=== PATIENT | male | born 1950 | race Hispanic/Latino ===

== ENCOUNTER 2021-12-01 04:18 | Observation (INO) | payer MEDICARE ==
[~2021-12-01] VITALS: Ht 172.7 cm; Wt 101.6 kg
[~2021-12-01 04:18] MED LIST: FLOMAX0.4 MG PO; FUROSEMIDE40 MG PO; HYDROCHLOROTHIA25 MG PO; LANSOPRAZOLE30 MG PO; LEVOTHYROXINE50 MCG PO; ONDANSETRON ODT4 MG PO; PEPCID20 MG PO; SPIRONOLACTONE25 MG PO
[2021-12-01] MEDS ORDERED: ONDANSETRON HCL INJ 2MG/ML 2ML 2 MG/ML VIAL IV STA (04:27)
[2021-12-01] MEDS ORDERED: MECLIZINE HCL 12.5 MG TAB PO ONE (04:30)
[2021-12-01 04:49] LABS: BASOPHILS % 0.7 % (0.0-1.0); EOSINOPHILS # (AUTO) 0.1 (0.0-0.4); EOSINOPHILS % 2.3 % (0.0-6.0); HEMATOCRIT 36.1 % (38.2-49.6); HEMOGLOBIN 12.2 g/dL (14.0-18.0); LYMPHOCYTES # (AUTO) 1.2 (1.0-3.2); LYMPHOCYTES % 26.7 % (18.0-39.1); MEAN CORPUSCULAR HEMOGLOBIN 31.4 pg (28-32); MEAN CORPUSCULAR HGB CONC 33.8 g/dL (31-35); MONOCYTES # (AUTO) 0.3 (0.2-0.8); MONOCYTES % 6.7 % (4.4-11.3); NEUTROPHILS # (AUTO) 2.7 (2.1-6.9); NEUTROPHILS % 63.1 % (38.7-80.0); PLATELET COUNT 79 x10e3/uL (140-360); RED BLOOD COUNT 3.88 x10e6/uL (4.3-5.7); RED CELL DISTRIBUTION WIDTH 14.4 % (11.7-14.4)
[2021-12-01 04:55] LABS: INR 1.08
[2021-12-01 04:56] LABS: PARTIAL THROMBOPLASTIN TIME 33.6 seconds (23.8-35.5)
[2021-12-01 05:05] LABS: ALBUMIN 2.8 g/dL (3.5-5.0); ALBUMIN/GLOBULIN RATIO 0.7 (0.8-2.0); ANION GAP 12.9 mmol/L (8-16); CALCIUM 8.1 mg/dL (8.4-10.2); CREATININE, SERUM 0.77 mg/dL (0.72-1.25); POTASSIUM 3.9 mmol/L (3.5-5.1)
[2021-12-01 05:26] LABS: CLARITY,URINE CLEAR (CLEAR); COLOR,URINE YELLOW (YELLOW); LEUKOCYTE ESTERASE ,URINE NEGATIVE (NEGATIVE)
[2021-12-01 05:27] LABS: KETONES,URINE NEGATIVE (NEGATIVE); NITRITE,URINE NEGATIVE (NEGATIVE); PROTEIN,URINE DIPSTICK NEGATIVE (NEGATIVE); URINE UROBILINOGEN 1 mg/dL (0.2 - 1)
[2021-12-01 05:28] LABS: RBC,URINE 0-5 /HPF (0-5); WBC,URINE (MAN) 0-5 /HPF (0-5)
[2021-12-01 05:29] LABS: BACTERIA,URINE RARE /HPF
[2021-12-01] MEDS ORDERED: ONDANSETRON HCL INJ 2MG/ML 2ML 2 MG/ML VIAL IV PRN (07:00)
[2021-12-01] MEDS: RIFAXIMIN 550 MG TABLET PO SCH ×3 (07:19→17:34)
[2021-12-01] MEDS: LACTULOSE SYRUP 20 GM/30 ML UDC PO SCH ×3 (07:19→17:34)
[2021-12-01] MEDS ORDERED: MULTIVITAMINS- 12 INJECTION 10 ML, FOLIC ACID MDV 1 MG, THIAMINE HCL INJ 100 MG in SODI... IV ONE (08:45)
[2021-12-01 12:00] VITALS: BP 117/54
[2021-12-01 12:45] VITALS: BP 114/61
[2021-12-01 13:13] VITALS: BP 114/61
[2021-12-01 15:17] VITALS: BP 121/68
[2021-12-01] MEDS ORDERED: LASIX20 MG PO (15:30)
[2021-12-01] MEDS ORDERED: ACETAMINOPHEN 325 MG TAB PO PRN (15:45)
[2021-12-01] MEDS ORDERED: TRAMADOL HCL 50 MG TAB PO PRN (15:45)
[2021-12-01] MEDS: PROPRANOLOL HCL 10 MG TAB PO SCH (17:35)
[2021-12-01 19:57] VITALS: BP 121/70
[2021-12-01 19:58] VITALS: BP 121/70
[2021-12-01] MEDS ORDERED: TAMSULOSIN HCL 0.4 MG CAP PO SCH (21:00)
[2021-12-02] VITALS: BP 136/74
[2021-12-02] MEDS: LACTULOSE SYRUP 20 GM/30 ML UDC PO SCH
[2021-12-02 04:00] VITALS: BP 136/72
[2021-12-02 05:06] LABS: BASOPHILS # (AUTO) 0.1 (0.0-0.1); BASOPHILS % 1.1 % (0.0-1.0); EOSINOPHILS # (AUTO) 0.2 (0.0-0.4); EOSINOPHILS % 3.4 % (0.0-6.0); HEMOGLOBIN 12.7 g/dL (14.0-18.0); LYMPHOCYTES # (AUTO) 1.9 (1.0-3.2); LYMPHOCYTES % 34.9 % (18.0-39.1); MEAN CORPUSCULAR HEMOGLOBIN 31.4 pg (28-32); MEAN CORPUSCULAR HGB CONC 33.4 g/dL (31-35); MEAN CORPUSCULAR VOLUME 94.1 fL (81-99); MONOCYTES # (AUTO) 0.5 (0.2-0.8); MONOCYTES % 8.6 % (4.4-11.3); NEUTROPHILS # (AUTO) 2.8 (2.1-6.9); NEUTROPHILS % 51.8 % (38.7-80.0); PLATELET COUNT 98 x10e3/uL (140-360); RED BLOOD COUNT 4.04 x10e6/uL (4.3-5.7); RED CELL DISTRIBUTION WIDTH 14.8 % (11.7-14.4)
[2021-12-02 05:36] LABS: ALBUMIN 2.7 g/dL (3.5-5.0); ALBUMIN/GLOBULIN RATIO 0.6 (0.8-2.0); ANION GAP 11.9 mmol/L (8-16); CALCIUM 8.4 mg/dL (8.4-10.2); CREATININE, SERUM 0.93 mg/dL (0.72-1.25); POTASSIUM 3.9 mmol/L (3.5-5.1)
[2021-12-02] MEDS ORDERED: LEVOTHYROXINE SODIUM 25 MCG TABLET PO SCH (06:00)
[2021-12-02] MEDS ORDERED: PANTOPRAZOLE SOD 40 MG TABEC PO SCH (07:30)
[2021-12-02 08:00] VITALS: BP 130/69
[2021-12-02] MEDS: PROPRANOLOL HCL 10 MG TAB PO SCH (08:49)
[2021-12-02] MEDS: RIFAXIMIN 550 MG TABLET PO SCH (08:49)
[2021-12-02 08:58] VITALS: BP 130/69
[2021-12-02] MEDS ORDERED: FUROSEMIDE 40 MG TAB PO SCH (09:00)
[2021-12-02] MEDS ORDERED: SPIRONOLACTONE 25 MG TAB PO SCH (09:00)
[2021-12-02] MEDS ORDERED: ONDANSETRON HCL 4 MG ORAL DISINTEGRATING TAB PO PRN (09:15)
[2021-12-02 12:13] VITALS: BP 123/74
[2021-12-02] MEDS ORDERED: LACTULOSE20 GM/30 M PO (13:39)
[2021-12-02] MEDS ORDERED: FUROSEMIDE40 MG PO (13:39)
[2021-12-02] MEDS ORDERED: ALDACTONE25 MG PO (13:39)
== END 2021-12-02 14:35 | disposition home or self-care (01) ==
LOC: ER 04:25 → INTOOBSV 06:55 → MERGE 06:55 → ERHOLD 06:55 → MED/SURG 15:00
PROVIDERS: ADMIT Internal Medicine; ATTEND Internal Medicine
DX: K70.40 Alcoholic hepatic failure without coma (principal); F10.21 Alcohol dependence, in remission; I25.10 Atherosclerotic heart disease of native coronary artery without angina pectoris; E11.9 Type 2 diabetes mellitus without complications; E03.9 Hypothyroidism, unspecified; Z20.822 Contact with and (suspected) exposure to COVID-19
CPT/HCPCS: 0223U; 36415 ×2; 70450; 80053 ×2; 81001; 82140 ×2; 82270; 83735; 84443; 85025 ×2; 85610; 85730; 94799; 97139; 97161; 99284; G0378 ×2; J3411; J7030; S0164

== ENCOUNTER → 2022-06-18 | Day surgery (SDC) | payer MEDICARE ==
[2022-06-10 10:46] LABS: BASOPHILS % 0.8 % (0.0-1.0); EOSINOPHILS # (AUTO) 0.1 (0.0-0.4); EOSINOPHILS % 1.6 % (0.0-6.0); HEMATOCRIT 33.8 % (38.2-49.6); HEMOGLOBIN 10.8 g/dL (14.0-18.0); LYMPHOCYTES # (AUTO) 0.9 (1.0-3.2); LYMPHOCYTES % 24.3 % (18.0-39.1); MEAN CORPUSCULAR HEMOGLOBIN 29.8 pg (28-32); MEAN CORPUSCULAR VOLUME 93.1 fL (81-99); MONOCYTES # (AUTO) 0.3 (0.2-0.8); MONOCYTES % 8.4 % (4.4-11.3); NEUTROPHILS # (AUTO) 2.5 (2.1-6.9); NEUTROPHILS % 64.6 % (38.7-80.0); PLATELET COUNT 71 x10e3/uL (140-360); RED BLOOD COUNT 3.63 x10e6/uL (4.3-5.7); RED CELL DISTRIBUTION WIDTH 14.4 % (11.7-14.4)
[2022-06-10 10:59] LABS: INR 1.24; PROTHROMBIN TIME 15.8 seconds (11.9-14.5)
[2022-06-10 11:00] LABS: PARTIAL THROMBOPLASTIN TIME 36.7 seconds (23.8-35.5)
[2022-06-10 11:05] LABS: ALBUMIN 2.7 g/dL (3.5-5.0); ALBUMIN/GLOBULIN RATIO 0.6 (0.8-2.0); CALCIUM 8.6 mg/dL (8.4-10.2); CREATININE, SERUM 0.86 mg/dL (0.72-1.25)
[~2022-06-18] MED LIST changes: +ALDACTONE25 MG PO; +LACTULOSE20 GM/30 M PO; +LASIX20 MG PO; +LIDOCAINE HCL 2% LOCAL INJ 5 ML SDV VIAL INJ ONE; +PROPOFOL IV EMULSION 10 MG/ML 20 ML VIAL ONE
[2022-06-18 08:25] VITALS: BP 110/70
== END | disposition home or self-care (01) ==
LOC: OR 05:57
PROVIDERS: ATTEND Internal Medicine Gastroenterology
DX: K29.50 Unspecified chronic gastritis without bleeding (principal); K44.9 Diaphragmatic hernia without obstruction or gangrene; K70.30 Alcoholic cirrhosis of liver without ascites; K57.90 Diverticulosis of intestine, part unspecified, without perforation or abscess without bleeding; Z71.3 Dietary counseling and surveillance; I10 Essential (primary) hypertension; E03.9 Hypothyroidism, unspecified; N40.0 Benign prostatic hyperplasia without lower urinary tract symptoms; Z01.810 Encounter for preprocedural cardiovascular examination; Z01.812 Encounter for preprocedural laboratory examination; Z79.899 Other long term (current) drug therapy; Z68.36 Body mass index [BMI] 36.0-36.9, adult
CPT/HCPCS: 36415; 43235; 80053; 85025; 85610; 85730; 93005; J2001; J2704; 43239

== ENCOUNTER → 2022-09-17 | Day surgery (SDC) | payer MEDICARE ==
[2022-09-10 14:56] LABS: BASOPHILS % 0.5 % (0.0-1.0); EOSINOPHILS # (AUTO) 0.1 (0.0-0.4); EOSINOPHILS % 2.5 % (0.0-6.0); HEMATOCRIT 30.6 % (38.2-49.6); HEMOGLOBIN 10.1 g/dL (14.0-18.0); LYMPHOCYTES % 23.8 % (18.0-39.1); MEAN CORPUSCULAR VOLUME 87.9 fL (81-99); MONOCYTES # (AUTO) 0.4 (0.2-0.8); NEUTROPHILS # (AUTO) 2.6 (2.1-6.9); NEUTROPHILS % 64.2 % (38.7-80.0); PLATELET COUNT 71 x10e3/uL (140-360); RED BLOOD COUNT 3.48 x10e6/uL (4.3-5.7); RED CELL DISTRIBUTION WIDTH 15.7 % (11.7-14.4)
[2022-09-10 15:09] LABS: INR 1.24; PROTHROMBIN TIME 16.1 seconds (11.9-14.5)
[2022-09-10 15:10] LABS: PARTIAL THROMBOPLASTIN TIME 36.5 seconds (23.8-35.5)
[2022-09-10 15:19] LABS: ALBUMIN 2.6 g/dL (3.5-5.0); ALBUMIN/GLOBULIN RATIO 0.6 (0.8-2.0); ANION GAP 11.9 mmol/L (8-16); CALCIUM 8.2 mg/dL (8.4-10.2); CREATININE, SERUM 0.94 mg/dL (0.72-1.25); POTASSIUM 3.9 mmol/L (3.5-5.1)
[~2022-09-17] MED LIST changes: +LACTATED RINGER'S 1,000 ML ONE
[2022-09-17 08:59] VITALS: BP 125/72
== END | disposition home or self-care (01) ==
LOC: OR 07:36
PROVIDERS: ATTEND Internal Medicine Gastroenterology
DX: K92.1 Melena (principal); Z86.010 Personal history of colon polyps; K57.30 Diverticulosis of large intestine without perforation or abscess without bleeding; K64.8 Other hemorrhoids; K70.30 Alcoholic cirrhosis of liver without ascites; Z01.810 Encounter for preprocedural cardiovascular examination; Z01.812 Encounter for preprocedural laboratory examination; Z79.899 Other long term (current) drug therapy; Z68.35 Body mass index [BMI] 35.0-35.9, adult
CPT/HCPCS: 36415; 45378; 80053; 85025; 85610; 85730; 93005; J2001; J2704; J7121

== ENCOUNTER 2023-03-04 19:52 | Inpatient (IN) | payer MEDICARE ==
[~2023-03-04] VITALS: Ht 172.7 cm; Wt 10.2 kg
[~2023-03-04 19:52] MED LIST changes: +CEFDINIR300 MG PO; +KETOROLAC TROME10 MG PO; -LACTATED RINGER'S 1,000 ML ONE; -LIDOCAINE HCL 2% LOCAL INJ 5 ML SDV VIAL INJ ONE; +ONDANSETRON ODT4 MG SL; -PROPOFOL IV EMULSION 10 MG/ML 20 ML VIAL ONE; +ULTRAM 50MG50 MG PO
[2023-03-04 20:29] LABS: BASOPHILS % 0.4 % (0.0-1.0); EOSINOPHILS # (AUTO) 0.1 (0.0-0.4); EOSINOPHILS % 1.5 % (0.0-6.0); HEMATOCRIT 32.6 % (38.2-49.6); HEMOGLOBIN 11.6 g/dL (14.0-18.0); LYMPHOCYTES # (AUTO) 0.9 (1.0-3.2); LYMPHOCYTES % 19.1 % (18.0-39.1); MEAN CORPUSCULAR HEMOGLOBIN 31.9 pg (28-32); MEAN CORPUSCULAR HGB CONC 35.6 g/dL (31-35); MEAN CORPUSCULAR VOLUME 89.6 fL (81-99); MONOCYTES # (AUTO) 0.4 (0.2-0.8); NEUTROPHILS # (AUTO) 3.3 (2.1-6.9); NEUTROPHILS % 70.8 % (38.7-80.0); RED BLOOD COUNT 3.64 x10e6/uL (4.3-5.7); WHITE BLOOD COUNT 4.65 x10e3/uL (4.8-10.8)
[2023-03-04 20:30] LABS: PLATELET COUNT 69 x10e3/uL (140-360)
[2023-03-04 20:45] LABS: ALANINE AMINOTRANSFERASE 31 IU/L (0-55); ALBUMIN 2.7 g/dL (3.5-5.0); ALBUMIN/GLOBULIN RATIO 0.7 (0.8-2.0); ALKALINE PHOSPHATASE 205 IU/L (40-150); BLOOD UREA NITROGEN 11 mg/dL (7-26); BUN/CREATININE RATIO 14 (6-25); CALCIUM 8.8 mg/dL (8.4-10.2); CARBON DIOXIDE 22 mmol/L (22-29); CHLORIDE 111 mmol/L (98-107); CREATINE KINASE 69 IU/L (30-200); GLUCOSE 150 mg/dL (74-118); SODIUM 139 mmol/L (136-145)
[2023-03-04 20:54] LABS: LIPASE 45 U/L (8-78)
[2023-03-04 21:46] LABS: CLARITY,URINE SL CLOUDY (CLEAR); COLOR,URINE AMBER (YELLOW); KETONES,URINE TRACE (NEGATIVE); LEUKOCYTE ESTERASE ,URINE NEGATIVE (NEGATIVE); NITRITE,URINE NEGATIVE (NEGATIVE); PROTEIN,URINE DIPSTICK NEGATIVE (NEGATIVE)
[2023-03-04 21:59] LABS: BACTERIA,URINE MODERATE /HPF
[2023-03-04 22:00] LABS: AMORPHOUS SEDIMENT,URINE MODERATE (FEW); TRANSITIONAL EPI CELLS,URINE FEW; WBC,URINE (MAN) 0-5 /HPF (0-5)
[2023-03-05] VITALS (12 sets, daily range): BP systolic 124–135; BP diastolic 62–101; PULSE 60–69; RESP 13–18; TEMP 98–98.2; O2SAT 98–100
[2023-03-05] MEDS ORDERED: LACTULOSE SYRUP 20 GM/30 ML UDC PO SCH (00:30)
[2023-03-05] MEDS: SODIUM CHLORIDE 0.9% 1000ML 1,000 ML IV SCH ×2 (01:00→06:15)
[2023-03-05] MEDS ORDERED: ALBUTEROL/IPRATROPIUM 3 ML NEB NEB PRN (08:15)
[2023-03-05] MEDS: LACTULOSE SYRUP 20 GM/30 ML UDC PO SCH ×3 (09:43→22:02)
[2023-03-05 11:15] LABS: BASOPHILS % 0.5 % (0.0-1.0); EOSINOPHILS # (AUTO) 0.1 (0.0-0.4); EOSINOPHILS % 3.3 % (0.0-6.0); HEMATOCRIT 30.9 % (38.2-49.6); LYMPHOCYTES # (AUTO) 1.1 (1.0-3.2); LYMPHOCYTES % 24.7 % (18.0-39.1); MEAN CORPUSCULAR HEMOGLOBIN 31.8 pg (28-32); MEAN CORPUSCULAR HGB CONC 35.6 g/dL (31-35); MEAN CORPUSCULAR VOLUME 89.3 fL (81-99); MONOCYTES # (AUTO) 0.4 (0.2-0.8); MONOCYTES % 8.6 % (4.4-11.3); NEUTROPHILS # (AUTO) 2.7 (2.1-6.9); NEUTROPHILS % 62.7 % (38.7-80.0); PLATELET COUNT 73 x10e3/uL (140-360); RED BLOOD COUNT 3.46 x10e6/uL (4.3-5.7); RED CELL DISTRIBUTION WIDTH 16.5 % (11.7-14.4); WHITE BLOOD COUNT 4.29 x10e3/uL (4.8-10.8)
[2023-03-05 11:48] LABS: ALBUMIN 2.6 g/dL (3.5-5.0); ALBUMIN/GLOBULIN RATIO 0.7 (0.8-2.0); ANION GAP 8.8 mmol/L (8-16); CALCIUM 8.6 mg/dL (8.4-10.2); CREATININE, SERUM 0.76 mg/dL (0.72-1.25); POTASSIUM 3.8 mmol/L (3.5-5.1)
[2023-03-05 19:25] LABS: CREATINE KINASE 56 IU/L (30-200)
[2023-03-06] VITALS (11 sets, daily range): BP systolic 112–136; BP diastolic 59–70; PULSE 60–68; RESP 16–18; TEMP 97.8–98.1; O2SAT 97–100
[2023-03-06 05:49] LABS: EOSINOPHILS # (AUTO) 0.2 (0.0-0.4); EOSINOPHILS % 3.9 % (0.0-6.0); HEMATOCRIT 30.3 % (38.2-49.6); HEMOGLOBIN 10.7 g/dL (14.0-18.0); LYMPHOCYTES # (AUTO) 1.3 (1.0-3.2); LYMPHOCYTES % 32.7 % (18.0-39.1); MEAN CORPUSCULAR HEMOGLOBIN 31.8 pg (28-32); MEAN CORPUSCULAR HGB CONC 35.3 g/dL (31-35); MEAN CORPUSCULAR VOLUME 90.2 fL (81-99); MONOCYTES # (AUTO) 0.4 (0.2-0.8); MONOCYTES % 8.8 % (4.4-11.3); NEUTROPHILS # (AUTO) 2.2 (2.1-6.9); NEUTROPHILS % 53.4 % (38.7-80.0); PLATELET COUNT 70 x10e3/uL (140-360); RED BLOOD COUNT 3.36 x10e6/uL (4.3-5.7); RED CELL DISTRIBUTION WIDTH 16.1 % (11.7-14.4); WHITE BLOOD COUNT 4.07 x10e3/uL (4.8-10.8)
[2023-03-06 06:32] LABS: FERRITIN 30.92 ng/mL (21.81-274.66)
[2023-03-06] MEDS: LACTULOSE SYRUP 20 GM/30 ML UDC PO SCH ×3 (06:40→21:02)
[2023-03-06] MEDS ORDERED: TAMSULOSIN HCL 0.4 MG CAP PO SCH (21:00)
[2023-03-07 05:15] LABS: BASOPHILS % 0.5 % (0.0-1.0); EOSINOPHILS # (AUTO) 0.2 (0.0-0.4); EOSINOPHILS % 4.1 % (0.0-6.0); HEMOGLOBIN 10.4 g/dL (14.0-18.0); LYMPHOCYTES # (AUTO) 1.2 (1.0-3.2); LYMPHOCYTES % 31.6 % (18.0-39.1); MEAN CORPUSCULAR HEMOGLOBIN 31.8 pg (28-32); MEAN CORPUSCULAR HGB CONC 35.9 g/dL (31-35); MEAN CORPUSCULAR VOLUME 88.7 fL (81-99); MONOCYTES # (AUTO) 0.3 (0.2-0.8); MONOCYTES % 8.5 % (4.4-11.3); PLATELET COUNT 63 x10e3/uL (140-360); RED BLOOD COUNT 3.27 x10e6/uL (4.3-5.7); RED CELL DISTRIBUTION WIDTH 15.6 % (11.7-14.4); WHITE BLOOD COUNT 3.64 x10e3/uL (4.8-10.8)
[2023-03-07] MEDS ORDERED: LEVOTHYROXINE SODIUM 25 MCG TABLET PO SCH (06:00)
[2023-03-07 06:22] VITALS: BP 129/68; PULSE 67; RESP 18; TEMP 98.1; O2SAT 100
[2023-03-07] MEDS: LACTULOSE SYRUP 20 GM/30 ML UDC PO SCH (06:44)
[2023-03-07 08:11] VITALS: BP 121/56; PULSE 67; RESP 16; TEMP 98; O2SAT 100
[2023-03-07 09:00] VITALS: BP 121/56; PULSE 67; RESP 16; TEMP 98; O2SAT 100
[2023-03-07] MEDS ORDERED: SPIRONOLACTONE 25 MG TAB PO SCH (09:00)
[2023-03-07] MEDS ORDERED: PANTOPRAZOLE SOD 40 MG TABEC PO SCH (09:00)
[2023-03-07] MEDS ORDERED: FUROSEMIDE 40 MG TAB PO SCH (09:00)
[2023-03-07] MEDS ORDERED: PANTOPRAZOLE SO40 MG PO (10:25)
[2023-03-07] MEDS ORDERED: LACTULOSE20 GM/30 M PO (10:25)
== END 2023-03-07 11:08 | disposition home or self-care (01) | DRG 642 ==
LOC: ER 19:55 → ERHOLD 22:09 → ICU 03-05 03:31 → MED/SURG 03-05 15:12
PROVIDERS: ADMIT Internal Medicine; ATTEND Internal Medicine
DX: E72.4 Disorders of ornithine metabolism (principal); K92.1 Melena; D61.818 Other pancytopenia; D64.9 Anemia, unspecified; K70.30 Alcoholic cirrhosis of liver without ascites; E03.9 Hypothyroidism, unspecified; I10 Essential (primary) hypertension; N40.0 Benign prostatic hyperplasia without lower urinary tract symptoms; K57.90 Diverticulosis of intestine, part unspecified, without perforation or abscess without bleeding; K21.9 Gastro-esophageal reflux disease without esophagitis; Z91.148 Patient's other noncompliance with medication regimen for other reason; Z79.890 Hormone replacement therapy; Z79.899 Other long term (current) drug therapy; Z20.822 Contact with and (suspected) exposure to COVID-19
CPT/HCPCS: 36415; 70450; 71045; 80053; 80320; 81001; 82140; 82550; 82607; 82728; 82948; 83540; 83690; 83880; 84466; 84484; 85025; 93005; 94799; 99284; J7030; U0002

== ENCOUNTER 2024-07-10 22:34 | Emergency (ER) | payer MEDICARE ==
[~2024-07-10] VITALS: Ht 172.7 cm; Wt 105.2 kg
[~2024-07-10 22:34] MED LIST changes: +PANTOPRAZOLE SO40 MG PO; +PROTONIX20 MG PO
[2024-07-10 23:06] VITALS: PULSE 79; RESP 18; TEMP 98.2
[2024-07-10] MEDS: TETANUS/DIPHTHERIA TOX ADULT 0.5 ML SYR IM ONE (23:44)
[2024-07-11] MEDS: IBUPROFEN 600 MG TAB PO STA (02:22)
[2024-07-11] MEDS ORDERED: ULTRAM 50MG50 MG PO (02:26)
[2024-07-11 02:58] VITALS: BP 129/77; PULSE 71; RESP 18; TEMP 98.3; O2SAT 98
== END 2024-07-11 03:05 | disposition home or self-care (01) ==
LOC: ER 23:10
DX: M25.511 Pain in right shoulder (principal); S42.291A Other displaced fracture of upper end of right humerus, initial encounter for closed fracture; S00.31XA Abrasion of nose, initial encounter; S00.81XA Abrasion of other part of head, initial encounter; W01.0XXA Fall on same level from slipping, tripping and stumbling without subsequent striking against object, initial encounter; Y93.01 Activity, walking, marching and hiking; Y92.89 Other specified places as the place of occurrence of the external cause; K76.9 Liver disease, unspecified; E03.9 Hypothyroidism, unspecified; Z87.19 Personal history of other diseases of the digestive system
CPT/HCPCS: 70450; 70486; 90471; 90714; 99283

== ENCOUNTER 2025-03-14 21:46 | Emergency (ER) | payer MEDICARE ==
[~2025-03-14] VITALS: Ht 172.7 cm; Wt 105.2 kg
[2025-03-14 21:50] VITALS: TEMP 98.9
[2025-03-14 22:17] LABS: BASOPHILS % 0.5 % (0.0-1.0); EOSINOPHILS % 6.6 % (0.0-6.0); LYMPHOCYTES % 24.1 % (18.0-39.1); MONOCYTES % 7.2 % (4.4-11.3); NEUTROPHILS % 61.4 % (38.7-80.0); RED CELL DISTRIBUTION WIDTH 15.7 % (11.7-14.4)
[2025-03-14 22:25] LABS: INR 1.54
[2025-03-14 22:30] LABS: ETHANOL < 10.0 mg/dL (0.0-10.0)
[2025-03-14 22:32] LABS: EST GLOMERULAR FILTRATION RATE 91.0 ML/MIN (>=60)
[2025-03-15 00:30] VITALS: PULSE 78; RESP 20
[2025-03-15 00:57] LABS: EPITHELIAL CELLS,URINE MANY /LPF
[2025-03-15 00:59] LABS: LEUKOCYTE ESTERASE ,URINE NEGATIVE (NEGATIVE); PROTEIN,URINE DIPSTICK 1+ (NEGATIVE); URINE UROBILINOGEN 4.0 mg/dL (0.2 - 1)
[2025-03-15 01:46] VITALS: BP 115/63; PULSE 78; RESP 20; O2SAT 99
== END 2025-03-15 01:35 | disposition home or self-care (01) ==
LOC: ER 22:05
DX: R53.1 Weakness (principal); K70.30 Alcoholic cirrhosis of liver without ascites; N39.0 Urinary tract infection, site not specified; E03.9 Hypothyroidism, unspecified; K21.9 Gastro-esophageal reflux disease without esophagitis; R94.31 Abnormal electrocardiogram [ECG] [EKG]; Z87.19 Personal history of other diseases of the digestive system
CPT/HCPCS: 36415; 71045; 80053; 80320; 81001; 82140; 84484; 85025; 85610; 85730; 93005; 99284